=== PATIENT | male | born 2000 | race Caucasian/White ===

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

== ENCOUNTER 2019-07-21 16:39 | Emergency (ER) | payer SELFPAY ==
[~2019-07-21] VITALS: Ht 177.8 cm; Wt 72.6 kg
[~2019-07-21 16:39] MED LIST changes: +PROZAC20 MG PO
== END 2019-07-21 17:43 | disposition home or self-care (01) ==
LOC: ER 16:39
DX: J06.9 Acute upper respiratory infection, unspecified (principal); J45.909 Unspecified asthma, uncomplicated; F32.9 Major depressive disorder, single episode, unspecified; F90.9 Attention-deficit hyperactivity disorder, unspecified type; Z87.891 Personal history of nicotine dependence
CPT/HCPCS: 99283

== ENCOUNTER 2021-04-28 03:48 | Emergency (ER) | payer OTHER ==
[~2021-04-28] VITALS: Ht 180.3 cm; Wt 72.6 kg
[2021-04-28] MEDS ORDERED: CLIN300 PO (04:57)
== END 2021-04-28 05:27 | disposition home or self-care (01) ==
LOC: ER 03:48
DX: K03.81 Cracked tooth (principal); J45.909 Unspecified asthma, uncomplicated; Z87.891 Personal history of nicotine dependence
CPT/HCPCS: A9270

== ENCOUNTER 2021-05-10 02:28 | Emergency (ER) | payer OTHER ==
[~2021-05-10] VITALS: Ht 177.8 cm; Wt 72.6 kg
[~2021-05-10 02:28] MED LIST changes: +CLIN300 PO
[2021-05-10] MEDS ORDERED: Amoxicillin500 MG PO (02:51)
== END 2021-05-10 03:06 | disposition home or self-care (01) ==
LOC: ER 02:28
DX: K04.7 Periapical abscess without sinus (principal); K02.9 Dental caries, unspecified; J45.909 Unspecified asthma, uncomplicated; Z87.891 Personal history of nicotine dependence
CPT/HCPCS: 99282; A9270

== ENCOUNTER 2021-07-09 20:45 | Emergency (ER) | payer OTHER ==
[~2021-07-09] VITALS: Ht 177.8 cm; Wt 74.8 kg
[~2021-07-09 20:45] MED LIST changes: +Amoxicillin500 MG PO
== END 2021-07-09 21:55 | disposition home or self-care (01) ==
LOC: ER 20:45
DX: S60.222A Contusion of left hand, initial encounter (principal); J45.909 Unspecified asthma, uncomplicated; Z87.891 Personal history of nicotine dependence; W23.0XXA Caught, crushed, jammed, or pinched between moving objects, initial encounter
CPT/HCPCS: 73130; 90471; 90714; 99283-25